=== PATIENT | male | born 1980 | race African-American/Black ===

== ENCOUNTER 2020-10-24 17:24 | Inpatient (IN) | payer OTHER ==
[2020-10-24] MEDS ORDERED: morphine CARPU-JECT 2 MG/1 ML DISP.SYRIN IVPUSH ONE (17:52)
[2020-10-24] MEDS ORDERED: morphine SULFATE 4 MG/ML VIAL ONE (18:08)
[2020-10-24 19:09] LABS: EOS % 5.5 % (0-4.5); HEMATOCRIT 33.1 % (35.4-49); HEMOGLOBIN 9.9 GM/dL (11.7-16.9); LYMPH % 38.4 % (8-40); MCH 20.4 pg (25.7-33.7); MEAN CELL VOLUME 68.1 fl (80-96); MEAN PLT VOLUME 10.5 fl (7.5-11.1); NEUT % 46.1 % (42.8-82.8); PLATELET COUNT 204 K/MM3 (134-434); RBC 4.87 M/mm3 (4.00-5.60); RDW 18.9 % (11.9-15.9); WHITE BLOOD COUNT 8.1 K/mm3 (4.0-10.0)
[2020-10-24 19:26] LABS: POTASSIUM 3.6 mmol/L (3.5-5.1)
[2020-10-24] MEDS ORDERED: PIPERACILLIN/TAZOB 4.5 GM 4.5 GM in DEXTROSE 5%-WATER 100 ML IVPB ONE (19:26)
[2020-10-24] MEDS ORDERED: VANCOMYCIN HCL 1,500 MG in DEXTROSE 5%-WATER - 500 ML IVPB ONE (19:26)
[2020-10-24 19:28] LABS: CALCIUM 8.2 mg/dL (8.5-10.1)
[2020-10-24 19:29] LABS: BLOOD UREA NITROGEN 15.5 mg/dL (7-18)
[2020-10-24 19:32] LABS: CREATININE 0.7 mg/dL (0.55-1.3)
[2020-10-24 19:33] LABS: BILIRUBIN,TOTAL 0.2 mg/dL (0.2-1); TOT PROT 7.7 g/dl (6.4-8.2)
[2020-10-24] MEDS ORDERED: PIPERACILLIN/TAZOB 4.5 GM 4.5 GM/100 ML BAG IVPB ONE (19:35)
[2020-10-24 21:09] LABS: ANISOCYTOSIS 3+; MACROCYTOSIS 1+; OVALOCYTE 1+; PLATELET ESTIMATE NORMAL; TARGET CELLS 1+
[2020-10-24 21:17] LABS: INR 1.21 (0.83-1.09); PROTHROMBIN TIME (PATIENT) 14.8 SEC (9.7-13.0)
[2020-10-24 21:20] LABS: ACTIVATED PTT 38.3 SECONDS (25.2-36.5)
[2020-10-24] MEDS ORDERED: oxyCODONE HCL 5 MG TABLET PO PRN (21:55)
[2020-10-24] MEDS ORDERED: DOCUSATE SODIUM 100 MG CAPSULE (FP) PO ONE (22:26)
[2020-10-24] MEDS: DOCUSATE SODIUM 100 MG CAPSULE (FP) PO SCH (22:36)
[2020-10-24] MEDS: INSULIN SLIDING SCALE (NOVOLOG) 1 VIAL SQ SCH (22:36)
[2020-10-25] MEDS ORDERED: ACETAMINOPHEN 500 MG TABLET (FP) PO PRN (01:12)
[2020-10-25] MEDS: CITRIC ACID/SODIUM CITRATE 30 ML UNIT-DOSE CUP PO SCH ×2 (02:27→14:14)
[2020-10-25] MEDS ORDERED: PIPERACILLIN/TAZOB 4.5 GM 4.5 GM/100 ML BAG IVPB ONE (03:33)
[2020-10-25] MEDS ORDERED: PIPERACILLIN/TAZOB 4.5 GM 4.5 GM in DEXTROSE 5%-WATER 100 ML IVPB ONE (04:00)
[2020-10-25] MEDS: AMANTADINE HCL 100MG/10 ML UNIT DOSE CUPS PO SCH ×2 (06:28→15:20)
[2020-10-25] MEDS: INSULIN SLIDING SCALE (NOVOLOG) 1 VIAL SQ SCH ×4 (06:28→21:43)
[2020-10-25 06:41] LABS: POTASSIUM 4.3 mmol/L (3.5-5.1)
[2020-10-25 06:43] LABS: HEMATOCRIT 35.5 % (35.4-49); HEMOGLOBIN 10.9 GM/dL (11.7-16.9); MCH 20.4 pg (25.7-33.7); MCHC 30.6 g/dl (32.0-35.9); MEAN CELL VOLUME 66.8 fl (80-96); MEAN PLT VOLUME 9.9 fl (7.5-11.1); PLATELET COUNT 200 K/MM3 (134-434); RBC 5.31 M/mm3 (4.00-5.60); RDW 19.2 % (11.9-15.9); WHITE BLOOD COUNT 9.1 K/mm3 (4.0-10.0)
[2020-10-25 06:45] LABS: ALBUMIN 3.4 g/dl (3.4-5.0); BLOOD UREA NITROGEN 11.1 mg/dL (7-18); MAGNESIUM 1.9 mg/dL (1.8-2.4)
[2020-10-25 06:48] LABS: CREATININE 0.8 mg/dL (0.55-1.3); PHOSPHOROUS 3.1 mg/dL (2.5-4.9)
[2020-10-25 06:49] LABS: BILIRUBIN,TOTAL 0.6 mg/dL (0.2-1); TOT PROT 8.2 g/dl (6.4-8.2)
[2020-10-25] MEDS ORDERED: LACOSAMIDE 200 MG PO SCH (09:00)
[2020-10-25] MEDS ORDERED: VANCOMYCIN HCL 1,500 MG in DEXTROSE 5%-WATER - 500 ML IVPB ONE (09:00)
[2020-10-25] MEDS ORDERED: ASCORBIC ACID 500 MG TABLET (FP) ONE (09:22)
[2020-10-25] MEDS ORDERED: METOPROLOL TARTRATE 25 MG TABLET (FP) ONE (09:23)
[2020-10-25] MEDS ORDERED: LACOSAMIDE 50 MG TABLET PO ONE (09:23)
[2020-10-25] MEDS ORDERED: ASPIRIN 81 MG CHEWABLE TABLETS ONE (09:23)
[2020-10-25] MEDS ORDERED: amLODIPine BESYLATE 5 MG TABLET (FP) ONE (09:24)
[2020-10-25] MEDS ORDERED: FUROSEMIDE 40 MG TABLET (FP) ONE (09:24)
[2020-10-25 09:25] LABS: EPI CELLS >36 /uL (0-25.1); HYALINE CASTS 0 /uL (0-3.1); PH,URINE 7.5 (5.0-8.0); URINE APPEARANCE CLEAR; URINE BACTERIA 76 /uL (0-1359); URINE BILIRUBIN NEGATIVE (NEGATIVE); URINE COLOR YELLOW; URINE GLUCOSE (UA) NEGATIVE (NEGATIVE); URINE KETONE NEGATIVE (NEGATIVE); URINE LEUK ESTERASE 3+ (NEGATIVE); URINE NITRITE NEGATIVE (NEGATIVE); URINE PROTEIN NEGATIVE (NEGATIVE); URINE RBC 7 /uL (0-23.9); URINE UROBILINOGEN 0.2 mg/dL (0.2-1.0); URINE WBC 177 /uL (0-25.8)
[2020-10-25] MEDS ORDERED: DOCUSATE SODIUM 100 MG CAPSULE (FP) PO ONE (09:25)
[2020-10-25] MEDS ORDERED: ENOXAPARIN NA (PORCINE) 40 MG/0.4 ML DISP.SYRIN SQ SCH ×2 (10:00)
[2020-10-25] MEDS ORDERED: CALCIUM POLYCARBOPHIL 625 MG PO SCH (10:00)
[2020-10-25] MEDS ORDERED: PATIENT'S OWN MEDICATION (NON-FORMULARY) (Bismuth Tribromoph/Petrolatum [Xeroform Petrolat TP SCH (10:00)
[2020-10-25] MEDS ORDERED: [UNRECOGNIZED DRUG - SUPPLY] TP SCH (10:00)
[2020-10-25] MEDS ORDERED: ASCORBIC ACID 500 MG/5 ML PO SCH (10:00)
[2020-10-25] MEDS ORDERED: PT OWN MED DRAWER 7, Y5N ONE ×4 (11:53→22:33)
[2020-10-25] MEDS: amLODIPine BESYLATE 5 MG TABLET (FP) PO SCH (14:12)
[2020-10-25] MEDS: ASPIRIN 81 MG CHEWABLE TABLETS PO SCH (14:12)
[2020-10-25] MEDS: DOCUSATE SODIUM 100 MG CAPSULE (FP) PO SCH ×2 (14:12→21:28)
[2020-10-25] MEDS: LACOSAMIDE 50 MG TABLET PO SCH ×2 (14:13→20:21)
[2020-10-25] MEDS: FUROSEMIDE 20 MG TABLET (FP) PO SCH (14:13)
[2020-10-25] MEDS: BACLOFEN 10 MG TABLET (FP) PO SCH ×2 (14:13→21:28)
[2020-10-25] MEDS: METOPROLOL TARTRATE 25 MG TABLET (FP) PO SCH ×2 (14:13→21:28)
[2020-10-25] MEDS: ASCORBIC ACID 500 MG/5 ML UNIT DOSE CUP PO SCH (14:14)
[2020-10-25] MEDS: AMANTADINE HCL 100 MG TABLET PO SCH ×2 (15:12→21:30)
[2020-10-25] MEDS: levETIRAcetam 500 MG/5 ML ORAL SOLUTION (UNIT-DOSE CUPS) PO SCH ×2 (15:12→21:27)
[2020-10-25 15:53] VITALS: BMI 26.4
[2020-10-25] MEDS: RIVAROXABAN 20 MG TABLET PO SCH (17:43)
[2020-10-25] MEDS: POLYETHYLENE GLYCOL 3350 119 GM BTL PO SCH (20:20)
[2020-10-25] MEDS: SENNOSIDES 8.6MG TABLET (FP) PO SCH (21:27)
[2020-10-25] MEDS: ATORVASTATIN CA 20 MG TABLET (FP) PO SCH (21:28)
[2020-10-26] MEDS ORDERED: PT OWN MED DRAWER 7, Y5N ONE ×6 (03:14→22:31)
[2020-10-26] MEDS: AMANTADINE HCL 100MG/10 ML UNIT DOSE CUPS PO SCH ×3 (05:53→21:30)
[2020-10-26] MEDS: INSULIN SLIDING SCALE (NOVOLOG) 1 VIAL SQ SCH ×4 (06:22→21:48)
[2020-10-26] MEDS: amLODIPine BESYLATE 5 MG TABLET (FP) PO SCH (10:26)
[2020-10-26] MEDS: BACLOFEN 10 MG TABLET (FP) PO SCH ×2 (10:26→21:29)
[2020-10-26] MEDS: ASPIRIN 81 MG CHEWABLE TABLETS PO SCH (10:27)
[2020-10-26] MEDS: METOPROLOL TARTRATE 25 MG TABLET (FP) PO SCH ×2 (10:27→21:29)
[2020-10-26] MEDS: FUROSEMIDE 20 MG TABLET (FP) PO SCH (10:27)
[2020-10-26] MEDS: ASCORBIC ACID 500 MG/5 ML UNIT DOSE CUP PO SCH (10:28)
[2020-10-26] MEDS: CITRIC ACID/SODIUM CITRATE 30 ML UNIT-DOSE CUP PO SCH ×2 (10:28→23:30)
[2020-10-26] MEDS: COLLAGENASE CLOSTRIDIUM HIST. 30 GRAMS TUBE TP SCH (10:28)
[2020-10-26] MEDS: DOCUSATE SODIUM 100 MG CAPSULE (FP) PO SCH ×2 (10:29→21:30)
[2020-10-26] MEDS: levETIRAcetam 500 MG/5 ML ORAL SOLUTION (UNIT-DOSE CUPS) PO SCH ×2 (10:34→21:30)
[2020-10-26] MEDS: LACOSAMIDE 50 MG TABLET PO SCH ×2 (11:27→23:30)
[2020-10-26] MEDS: RIVAROXABAN 20 MG TABLET PO SCH (17:24)
[2020-10-26] MEDS: ATORVASTATIN CA 20 MG TABLET (FP) PO SCH (21:29)
[2020-10-26] MEDS: SENNOSIDES 8.6MG TABLET (FP) PO SCH (21:31)
[2020-10-26] MEDS: POLYETHYLENE GLYCOL 3350 119 GM BTL PO SCH (21:31)
[2020-10-27] MEDS ORDERED: PT OWN MED DRAWER 7, Y5N ONE ×5 (02:50→21:55)
[2020-10-27] MEDS: AMANTADINE HCL 100MG/10 ML UNIT DOSE CUPS PO SCH ×3 (05:21→21:59)
[2020-10-27] MEDS: INSULIN SLIDING SCALE (NOVOLOG) 1 VIAL SQ SCH ×4 (06:20→22:09)
[2020-10-27] MEDS: amLODIPine BESYLATE 5 MG TABLET (FP) PO SCH (09:57)
[2020-10-27] MEDS: METOPROLOL TARTRATE 25 MG TABLET (FP) PO SCH ×2 (09:57→22:00)
[2020-10-27] MEDS: levETIRAcetam 500 MG/5 ML ORAL SOLUTION (UNIT-DOSE CUPS) PO SCH ×2 (09:58→21:59)
[2020-10-27] MEDS: LACOSAMIDE 50 MG TABLET PO SCH ×2 (09:58→22:00)
[2020-10-27] MEDS: DOCUSATE SODIUM 100 MG CAPSULE (FP) PO SCH ×2 (09:59→22:01)
[2020-10-27] MEDS: ASPIRIN 81 MG CHEWABLE TABLETS PO SCH (09:59)
[2020-10-27] MEDS: CITRIC ACID/SODIUM CITRATE 30 ML UNIT-DOSE CUP PO SCH ×2 (09:59→22:02)
[2020-10-27] MEDS: BACLOFEN 10 MG TABLET (FP) PO SCH ×2 (09:59→22:03)
[2020-10-27] MEDS: FUROSEMIDE 20 MG TABLET (FP) PO SCH (09:59)
[2020-10-27] MEDS: COLLAGENASE CLOSTRIDIUM HIST. 30 GRAMS TUBE TP SCH (10:00)
[2020-10-27] MEDS: ASCORBIC ACID 500 MG/5 ML UNIT DOSE CUP PO SCH (10:00)
[2020-10-27] MEDS: RIVAROXABAN 20 MG TABLET PO SCH (17:21)
[2020-10-27] MEDS: VANCOMYCIN 1 GRAM (PRE-DOCKED) 1,000 MG/250 ML BAG IVPB SCH (18:16)
[2020-10-27] MEDS: ATORVASTATIN CA 20 MG TABLET (FP) PO SCH (22:02)
[2020-10-27] MEDS: SENNOSIDES 8.6MG TABLET (FP) PO SCH (22:02)
[2020-10-27] MEDS: POLYETHYLENE GLYCOL 3350 119 GM BTL PO SCH (22:36)
[2020-10-28] MEDS ORDERED: PT OWN MED DRAWER 7, Y5N ONE ×2 (04:14→20:25)
[2020-10-28] MEDS: AMANTADINE HCL 100MG/10 ML UNIT DOSE CUPS PO SCH ×3 (07:00→21:37)
[2020-10-28] MEDS: INSULIN SLIDING SCALE (NOVOLOG) 1 VIAL SQ SCH ×4 (07:07→21:44)
[2020-10-28] MEDS: VANCOMYCIN 1 GRAM (PRE-DOCKED) 1,000 MG/250 ML BAG IVPB SCH ×2 (08:56→17:43)
[2020-10-28] MEDS: LACOSAMIDE 50 MG TABLET PO SCH ×2 (10:31→21:36)
[2020-10-28] MEDS: ASPIRIN 81 MG CHEWABLE TABLETS PO SCH (10:31)
[2020-10-28] MEDS: METOPROLOL TARTRATE 25 MG TABLET (FP) PO SCH ×2 (10:32→21:37)
[2020-10-28] MEDS: amLODIPine BESYLATE 5 MG TABLET (FP) PO SCH (10:32)
[2020-10-28] MEDS: FUROSEMIDE 20 MG TABLET (FP) PO SCH (10:32)
[2020-10-28] MEDS: DOCUSATE SODIUM 100 MG CAPSULE (FP) PO SCH ×2 (10:33→21:37)
[2020-10-28] MEDS: levETIRAcetam 500 MG/5 ML ORAL SOLUTION (UNIT-DOSE CUPS) PO SCH ×2 (10:34→22:41)
[2020-10-28] MEDS: COLLAGENASE CLOSTRIDIUM HIST. 30 GRAMS TUBE TP SCH (10:34)
[2020-10-28] MEDS: BACLOFEN 10 MG TABLET (FP) PO SCH ×2 (10:34→21:37)
[2020-10-28] MEDS: ASCORBIC ACID 500 MG/5 ML UNIT DOSE CUP PO SCH (15:24)
[2020-10-28] MEDS: CITRIC ACID/SODIUM CITRATE 30 ML UNIT-DOSE CUP PO SCH ×2 (15:24→21:36)
[2020-10-28] MEDS: RIVAROXABAN 20 MG TABLET PO SCH (17:44)
[2020-10-28] MEDS ORDERED: INSULIN (NOVOLOG) ASPART 100 UNITS/ML 10ML VIAL ONE (20:35)
[2020-10-28] MEDS: SENNOSIDES 8.6MG TABLET (FP) PO SCH (21:36)
[2020-10-28] MEDS: POLYETHYLENE GLYCOL 3350 119 GM BTL PO SCH (21:36)
[2020-10-28] MEDS: ATORVASTATIN CA 20 MG TABLET (FP) PO SCH (21:37)
[2020-10-29] MEDS ORDERED: PT OWN MED DRAWER 7, Y5N ONE ×4 (04:22→21:07)
[2020-10-29] MEDS: AMANTADINE HCL 100MG/10 ML UNIT DOSE CUPS PO SCH ×3 (05:41→22:14)
[2020-10-29] MEDS: VANCOMYCIN 1 GRAM (PRE-DOCKED) 1,000 MG/250 ML BAG IVPB SCH (06:35)
[2020-10-29] MEDS: INSULIN SLIDING SCALE (NOVOLOG) 1 VIAL SQ SCH ×4 (06:35→22:13)
[2020-10-29 09:25] LABS: HEMATOCRIT 32.4 % (35.4-49); HEMOGLOBIN 9.9 GM/dL (11.7-16.9); MCH 20.5 pg (25.7-33.7); MCHC 30.6 g/dl (32.0-35.9); MEAN CELL VOLUME 66.7 fl (80-96); MEAN PLT VOLUME 9.9 fl (7.5-11.1); PLATELET COUNT 227 K/MM3 (134-434); RBC 4.86 M/mm3 (4.00-5.60); RDW 20.1 % (11.9-15.9); WHITE BLOOD COUNT 8.7 K/mm3 (4.0-10.0)
[2020-10-29 10:00] LABS: BLOOD UREA NITROGEN 11.8 mg/dL (7-18); CALCIUM 8.2 mg/dL (8.5-10.1); CREATININE 0.7 mg/dL (0.55-1.3); MAGNESIUM 2.2 mg/dL (1.8-2.4); PHOSPHOROUS 2.6 mg/dL (2.5-4.9); POTASSIUM 3.8 mmol/L (3.5-5.1)
[2020-10-29] MEDS: ASPIRIN 81 MG CHEWABLE TABLETS PO SCH (10:23)
[2020-10-29] MEDS: amLODIPine BESYLATE 5 MG TABLET (FP) PO SCH (10:23)
[2020-10-29] MEDS: LACTOBACILLUS ACIDOPHILUS 1 TABLET PO SCH (10:24)
[2020-10-29] MEDS: FUROSEMIDE 20 MG TABLET (FP) PO SCH (10:24)
[2020-10-29] MEDS: METOPROLOL TARTRATE 25 MG TABLET (FP) PO SCH ×2 (10:24→22:11)
[2020-10-29] MEDS: levETIRAcetam 500 MG/5 ML ORAL SOLUTION (UNIT-DOSE CUPS) PO SCH ×2 (10:24→22:06)
[2020-10-29] MEDS: COLLAGENASE CLOSTRIDIUM HIST. 30 GRAMS TUBE TP SCH (10:25)
[2020-10-29] MEDS: BACLOFEN 10 MG TABLET (FP) PO SCH ×2 (10:25→22:06)
[2020-10-29] MEDS: FERROUS SO4 325 MG TABLET (FP) PO SCH (10:25)
[2020-10-29] MEDS: ASCORBIC ACID 500 MG/5 ML UNIT DOSE CUP PO SCH (10:25)
[2020-10-29] MEDS: CITRIC ACID/SODIUM CITRATE 30 ML UNIT-DOSE CUP PO SCH ×2 (10:26→22:06)
[2020-10-29] MEDS: DOCUSATE SODIUM 100 MG CAPSULE (FP) PO SCH ×2 (10:26→22:06)
[2020-10-29] MEDS: LACOSAMIDE 50 MG TABLET PO SCH ×2 (10:27→22:05)
[2020-10-29] MEDS ORDERED: VANCOMYCIN 1 GRAM (PRE-DOCKED) 1,000 MG/250 ML BAG IVPB SCH (11:30)
[2020-10-29] MEDS: RIVAROXABAN 20 MG TABLET PO SCH (18:14)
[2020-10-29] MEDS ORDERED: INSULIN (NOVOLOG) ASPART 100 UNITS/ML 10ML VIAL ONE (21:18)
[2020-10-29] MEDS: POLYETHYLENE GLYCOL 3350 119 GM BTL PO SCH (22:04)
[2020-10-29] MEDS: ATORVASTATIN CA 20 MG TABLET (FP) PO SCH (22:10)
[2020-10-29] MEDS: SENNOSIDES 8.6MG TABLET (FP) PO SCH (22:13)
[2020-10-30] MEDS ORDERED: PT OWN MED DRAWER 7, Y5N ONE ×6 (05:23→20:39)
[2020-10-30] MEDS: AMANTADINE HCL 100MG/10 ML UNIT DOSE CUPS PO SCH ×3 (05:46→21:31)
[2020-10-30] MEDS ORDERED: VANCOMYCIN 1 GRAM (PRE-DOCKED) 1,000 MG/250 ML BAG IVPB SCH (06:00)
[2020-10-30] MEDS: INSULIN SLIDING SCALE (NOVOLOG) 1 VIAL SQ SCH ×4 (06:12→21:31)
[2020-10-30 08:41] LABS: POTASSIUM 3.9 mmol/L (3.5-5.1)
[2020-10-30 08:43] LABS: CALCIUM 8.5 mg/dL (8.5-10.1)
[2020-10-30 08:44] LABS: BLOOD UREA NITROGEN 12.9 mg/dL (7-18); MAGNESIUM 2.1 mg/dL (1.8-2.4)
[2020-10-30 08:46] LABS: CREATININE 0.7 mg/dL (0.55-1.3); HEMOGLOBIN 9.4 GM/dL (11.7-16.9); MCH 20.3 pg (25.7-33.7); MCHC 30.4 g/dl (32.0-35.9); MEAN CELL VOLUME 66.8 fl (80-96); MEAN PLT VOLUME 9.6 fl (7.5-11.1); PHOSPHOROUS 2.9 mg/dL (2.5-4.9); PLATELET COUNT 202 K/MM3 (134-434); RBC 4.65 M/mm3 (4.00-5.60); WHITE BLOOD COUNT 7.7 K/mm3 (4.0-10.0)
[2020-10-30] MEDS: LACOSAMIDE 50 MG TABLET PO SCH ×2 (09:15→22:24)
[2020-10-30] MEDS: ASPIRIN 81 MG CHEWABLE TABLETS PO SCH (09:16)
[2020-10-30] MEDS: LACTOBACILLUS ACIDOPHILUS 1 TABLET PO SCH (09:16)
[2020-10-30] MEDS: CITRIC ACID/SODIUM CITRATE 30 ML UNIT-DOSE CUP PO SCH ×2 (09:17→21:32)
[2020-10-30] MEDS: FERROUS SO4 325 MG TABLET (FP) PO SCH (09:18)
[2020-10-30] MEDS: DOCUSATE SODIUM 100 MG CAPSULE (FP) PO SCH ×2 (09:18→21:32)
[2020-10-30] MEDS: BACLOFEN 10 MG TABLET (FP) PO SCH ×2 (09:19→21:33)
[2020-10-30] MEDS: FUROSEMIDE 20 MG TABLET (FP) PO SCH (09:19)
[2020-10-30] MEDS: amLODIPine BESYLATE 5 MG TABLET (FP) PO SCH (09:19)
[2020-10-30] MEDS: METOPROLOL TARTRATE 25 MG TABLET (FP) PO SCH ×2 (09:19→21:31)
[2020-10-30] MEDS: ASCORBIC ACID 500 MG/5 ML UNIT DOSE CUP PO SCH (09:20)
[2020-10-30] MEDS: levETIRAcetam 500 MG/5 ML ORAL SOLUTION (UNIT-DOSE CUPS) PO SCH ×2 (11:30→21:31)
[2020-10-30] MEDS: COLLAGENASE CLOSTRIDIUM HIST. 30 GRAMS TUBE TP SCH (13:45)
[2020-10-30] MEDS: RIVAROXABAN 20 MG TABLET PO SCH (17:33)
[2020-10-30] MEDS: POLYETHYLENE GLYCOL 3350 119 GM BTL PO SCH (21:25)
[2020-10-30] MEDS: SENNOSIDES 8.6MG TABLET (FP) PO SCH (21:30)
[2020-10-30] MEDS: ATORVASTATIN CA 20 MG TABLET (FP) PO SCH (21:33)
[2020-10-30] MEDS ORDERED: VANCOMYCIN 750 MG in DEXTROSE 5%-WATER - 150 ML IVPB SCH (22:00)
[2020-10-30] MEDS ORDERED: DOXYCYCLINE INJECTION 100 MG in DEXTROSE 5%-WATER 100 ML IVPB SCH (22:00)
[2020-10-31] MEDS ORDERED: PT OWN MED DRAWER 7, Y5N ONE ×5 (05:00→20:21)
[2020-10-31] MEDS: AMANTADINE HCL 100MG/10 ML UNIT DOSE CUPS PO SCH ×3 (05:13→21:13)
[2020-10-31] MEDS: INSULIN SLIDING SCALE (NOVOLOG) 1 VIAL SQ SCH ×4 (06:43→21:28)
[2020-10-31 08:44] LABS: HEMATOCRIT 32.2 % (35.4-49); HEMOGLOBIN 9.6 GM/dL (11.7-16.9); MCH 20.3 pg (25.7-33.7); MCHC 29.9 g/dl (32.0-35.9); MEAN CELL VOLUME 67.9 fl (80-96); MEAN PLT VOLUME 10.4 fl (7.5-11.1); RBC 4.74 M/mm3 (4.00-5.60); WHITE BLOOD COUNT 8.8 K/mm3 (4.0-10.0)
[2020-10-31 09:07] LABS: CALCIUM 8.5 mg/dL (8.5-10.1)
[2020-10-31 09:09] LABS: BLOOD UREA NITROGEN 14.7 mg/dL (7-18); MAGNESIUM 2.2 mg/dL (1.8-2.4)
[2020-10-31 09:11] LABS: CREATININE 0.7 mg/dL (0.55-1.3); PHOSPHOROUS 2.7 mg/dL (2.5-4.9)
[2020-10-31] MEDS: LACOSAMIDE 50 MG TABLET PO SCH ×2 (09:21→20:30)
[2020-10-31] MEDS: ASPIRIN 81 MG CHEWABLE TABLETS PO SCH (09:21)
[2020-10-31] MEDS: CITRIC ACID/SODIUM CITRATE 30 ML UNIT-DOSE CUP PO SCH ×2 (09:22→21:28)
[2020-10-31] MEDS: LACTOBACILLUS ACIDOPHILUS 1 TABLET PO SCH (09:22)
[2020-10-31] MEDS: FERROUS SO4 325 MG TABLET (FP) PO SCH (09:23)
[2020-10-31] MEDS: levETIRAcetam 500 MG/5 ML ORAL SOLUTION (UNIT-DOSE CUPS) PO SCH ×2 (09:23→21:14)
[2020-10-31] MEDS: DOCUSATE SODIUM 100 MG CAPSULE (FP) PO SCH ×2 (09:23→21:14)
[2020-10-31] MEDS: FUROSEMIDE 20 MG TABLET (FP) PO SCH (09:23)
[2020-10-31] MEDS: BACLOFEN 10 MG TABLET (FP) PO SCH ×2 (09:24→21:14)
[2020-10-31] MEDS: DOXYCYCLINE HYCLATE 100 MG CAPSULE PO SCH ×2 (09:24→17:36)
[2020-10-31] MEDS: METOPROLOL TARTRATE 25 MG TABLET (FP) PO SCH ×2 (09:24→21:13)
[2020-10-31] MEDS: amLODIPine BESYLATE 5 MG TABLET (FP) PO SCH (09:24)
[2020-10-31] MEDS: ASCORBIC ACID 500 MG/5 ML UNIT DOSE CUP PO SCH (09:25)
[2020-10-31 11:40] LABS: PLATELET COUNT 217 K/MM3 (134-434)
[2020-10-31] MEDS: COLLAGENASE CLOSTRIDIUM HIST. 30 GRAMS TUBE TP SCH (15:18)
[2020-10-31] MEDS: RIVAROXABAN 20 MG TABLET PO SCH (17:37)
[2020-10-31] MEDS: POLYETHYLENE GLYCOL 3350 119 GM BTL PO SCH (20:29)
[2020-10-31] MEDS: SENNOSIDES 8.6MG TABLET (FP) PO SCH (21:13)
[2020-10-31] MEDS: ATORVASTATIN CA 20 MG TABLET (FP) PO SCH (21:13)
[2020-10-31] MEDS ORDERED: INSULIN (NOVOLOG) ASPART 100 UNITS/ML 10ML VIAL ONE (21:19)
[2020-11-01] MEDS ORDERED: PT OWN MED DRAWER 7, Y5N ONE ×4 (03:29→09:31)
[2020-11-01] MEDS: AMANTADINE HCL 100MG/10 ML UNIT DOSE CUPS PO SCH ×3 (05:05→22:25)
[2020-11-01] MEDS: INSULIN SLIDING SCALE (NOVOLOG) 1 VIAL SQ SCH ×4 (06:30→22:26)
[2020-11-01 08:56] LABS: HEMOGLOBIN 9.7 GM/dL (11.7-16.9); MCH 20.3 pg (25.7-33.7); MCHC 30.3 g/dl (32.0-35.9); MEAN PLT VOLUME 10.1 fl (7.5-11.1); PLATELET COUNT 228 K/MM3 (134-434); RBC 4.78 M/mm3 (4.00-5.60); RDW 20.4 % (11.9-15.9)
[2020-11-01] MEDS: DOXYCYCLINE HYCLATE 100 MG CAPSULE PO SCH ×2 (09:11→17:06)
[2020-11-01] MEDS: ASPIRIN 81 MG CHEWABLE TABLETS PO SCH (09:11)
[2020-11-01] MEDS: LACTOBACILLUS ACIDOPHILUS 1 TABLET PO SCH (09:12)
[2020-11-01] MEDS: LACOSAMIDE 50 MG TABLET PO SCH ×2 (09:12→22:28)
[2020-11-01] MEDS: FERROUS SO4 325 MG TABLET (FP) PO SCH (09:12)
[2020-11-01] MEDS: levETIRAcetam 500 MG/5 ML ORAL SOLUTION (UNIT-DOSE CUPS) PO SCH ×2 (09:12→22:26)
[2020-11-01] MEDS: FUROSEMIDE 20 MG TABLET (FP) PO SCH (09:12)
[2020-11-01] MEDS: METOPROLOL TARTRATE 25 MG TABLET (FP) PO SCH ×2 (09:12→22:26)
[2020-11-01] MEDS: amLODIPine BESYLATE 5 MG TABLET (FP) PO SCH (09:13)
[2020-11-01] MEDS: BACLOFEN 10 MG TABLET (FP) PO SCH ×2 (09:13→22:26)
[2020-11-01] MEDS: ASCORBIC ACID 500 MG/5 ML UNIT DOSE CUP PO SCH (09:13)
[2020-11-01] MEDS: DOCUSATE SODIUM 100 MG CAPSULE (FP) PO SCH ×2 (09:13→22:27)
[2020-11-01] MEDS: CITRIC ACID/SODIUM CITRATE 30 ML UNIT-DOSE CUP PO SCH ×2 (09:13→22:27)
[2020-11-01 09:17] LABS: CALCIUM 8.8 mg/dL (8.5-10.1); POTASSIUM 4.4 mmol/L (3.5-5.1)
[2020-11-01 09:18] LABS: MAGNESIUM 2.3 mg/dL (1.8-2.4)
[2020-11-01 09:19] LABS: BLOOD UREA NITROGEN 17.5 mg/dL (7-18)
[2020-11-01 09:21] LABS: CREATININE 0.8 mg/dL (0.55-1.3); PHOSPHOROUS 2.6 mg/dL (2.5-4.9)
[2020-11-01] MEDS: COLLAGENASE CLOSTRIDIUM HIST. 30 GRAMS TUBE TP SCH (13:19)
[2020-11-01] MEDS: RIVAROXABAN 20 MG TABLET PO SCH (17:07)
[2020-11-01] MEDS: POLYETHYLENE GLYCOL 3350 119 GM BTL PO SCH (22:23)
[2020-11-01] MEDS: ATORVASTATIN CA 20 MG TABLET (FP) PO SCH (22:26)
[2020-11-01] MEDS: SENNOSIDES 8.6MG TABLET (FP) PO SCH (22:26)
[2020-11-01] MEDS: MUPIROCIN CA 2% TOPICAL CREAM 15 GM TUBE TP SCH (23:05)
[2020-11-02] MEDS: AMANTADINE HCL 100MG/10 ML UNIT DOSE CUPS PO SCH ×3 (06:08→21:09)
[2020-11-02] MEDS: INSULIN SLIDING SCALE (NOVOLOG) 1 VIAL SQ SCH ×4 (06:08→21:16)
[2020-11-02 08:58] LABS: HEMATOCRIT 31.4 % (35.4-49); HEMOGLOBIN 9.4 GM/dL (11.7-16.9); MCH 20.2 pg (25.7-33.7); MEAN CELL VOLUME 67.3 fl (80-96); MEAN PLT VOLUME 9.6 fl (7.5-11.1); PLATELET COUNT 214 K/MM3 (134-434); RBC 4.66 M/mm3 (4.00-5.60); RDW 20.6 % (11.9-15.9); WHITE BLOOD COUNT 7.3 K/mm3 (4.0-10.0)
[2020-11-02 09:14] LABS: POTASSIUM 3.7 mmol/L (3.5-5.1)
[2020-11-02 09:18] LABS: BLOOD UREA NITROGEN 17.8 mg/dL (7-18); CALCIUM 8.7 mg/dL (8.5-10.1); MAGNESIUM 2.2 mg/dL (1.8-2.4)
[2020-11-02 09:21] LABS: CREATININE 0.7 mg/dL (0.55-1.3)
[2020-11-02 09:22] LABS: PHOSPHOROUS 3.1 mg/dL (2.5-4.9)
[2020-11-02] MEDS ORDERED: PT OWN MED DRAWER 7, Y5N ONE ×4 (09:57→20:33)
[2020-11-02] MEDS: FUROSEMIDE 20 MG TABLET (FP) PO SCH (10:57)
[2020-11-02] MEDS: amLODIPine BESYLATE 5 MG TABLET (FP) PO SCH (10:58)
[2020-11-02] MEDS: LACTOBACILLUS ACIDOPHILUS 1 TABLET PO SCH (10:58)
[2020-11-02] MEDS: FERROUS SO4 325 MG TABLET (FP) PO SCH (10:58)
[2020-11-02] MEDS: ASCORBIC ACID 500 MG/5 ML UNIT DOSE CUP PO SCH (10:59)
[2020-11-02] MEDS: METOPROLOL TARTRATE 25 MG TABLET (FP) PO SCH ×2 (10:59→21:08)
[2020-11-02] MEDS: ASPIRIN 81 MG CHEWABLE TABLETS PO SCH (10:59)
[2020-11-02] MEDS: BACLOFEN 10 MG TABLET (FP) PO SCH ×2 (10:59→21:08)
[2020-11-02] MEDS: levETIRAcetam 500 MG/5 ML ORAL SOLUTION (UNIT-DOSE CUPS) PO SCH ×2 (11:02→21:08)
[2020-11-02] MEDS: DOCUSATE SODIUM 100 MG CAPSULE (FP) PO SCH ×2 (11:02→21:09)
[2020-11-02] MEDS: CITRIC ACID/SODIUM CITRATE 30 ML UNIT-DOSE CUP PO SCH ×2 (11:03→21:09)
[2020-11-02] MEDS: MUPIROCIN CA 2% TOPICAL CREAM 15 GM TUBE TP SCH ×2 (11:03→21:09)
[2020-11-02] MEDS: LACOSAMIDE 50 MG TABLET PO SCH ×2 (11:37→21:08)
[2020-11-02] MEDS: VANCOMYCIN/WATER BAGS 1,250 MG/250 ML BAG IVPB SCH (11:37)
[2020-11-02] MEDS: RIVAROXABAN 20 MG TABLET PO SCH (17:31)
[2020-11-02] MEDS: ATORVASTATIN CA 20 MG TABLET (FP) PO SCH (21:08)
[2020-11-02] MEDS: SENNOSIDES 8.6MG TABLET (FP) PO SCH (21:08)
[2020-11-02] MEDS: POLYETHYLENE GLYCOL 3350 119 GM BTL PO SCH (21:08)
[2020-11-03] MEDS ORDERED: PT OWN MED DRAWER 7, Y5N ONE ×4 (04:23→20:56)
[2020-11-03] MEDS: INSULIN SLIDING SCALE (NOVOLOG) 1 VIAL SQ SCH ×4 (06:05→21:18)
[2020-11-03] MEDS: AMANTADINE HCL 100MG/10 ML UNIT DOSE CUPS PO SCH ×3 (06:05→21:22)
[2020-11-03 08:41] LABS: HEMATOCRIT 31.5 % (35.4-49); HEMOGLOBIN 9.5 GM/dL (11.7-16.9); MCH 20.4 pg (25.7-33.7); MCHC 30.2 g/dl (32.0-35.9); MEAN CELL VOLUME 67.4 fl (80-96); MEAN PLT VOLUME 9.6 fl (7.5-11.1); PLATELET COUNT 224 K/MM3 (134-434); RBC 4.67 M/mm3 (4.00-5.60); WHITE BLOOD COUNT 8.8 K/mm3 (4.0-10.0)
[2020-11-03 09:01] LABS: POTASSIUM 3.9 mmol/L (3.5-5.1)
[2020-11-03 09:03] LABS: CALCIUM 8.7 mg/dL (8.5-10.1)
[2020-11-03 09:04] LABS: BLOOD UREA NITROGEN 16.5 mg/dL (7-18); MAGNESIUM 2.2 mg/dL (1.8-2.4)
[2020-11-03 09:09] LABS: CREATININE 0.7 mg/dL (0.55-1.3); PHOSPHOROUS 3.1 mg/dL (2.5-4.9)
[2020-11-03] MEDS: levETIRAcetam 500 MG/5 ML ORAL SOLUTION (UNIT-DOSE CUPS) PO SCH ×2 (10:21→21:23)
[2020-11-03] MEDS: VANCOMYCIN/WATER BAGS 1,250 MG/250 ML BAG IVPB SCH (10:22)
[2020-11-03] MEDS: LACOSAMIDE 50 MG TABLET PO SCH ×2 (10:22→21:10)
[2020-11-03] MEDS: LACTOBACILLUS ACIDOPHILUS 1 TABLET PO SCH (10:22)
[2020-11-03] MEDS: ASCORBIC ACID 500 MG/5 ML UNIT DOSE CUP PO SCH (10:22)
[2020-11-03] MEDS: MUPIROCIN CA 2% TOPICAL CREAM 15 GM TUBE TP SCH ×2 (10:23→21:22)
[2020-11-03] MEDS: METOPROLOL TARTRATE 25 MG TABLET (FP) PO SCH ×2 (10:23→21:22)
[2020-11-03] MEDS: amLODIPine BESYLATE 5 MG TABLET (FP) PO SCH (10:23)
[2020-11-03] MEDS: CITRIC ACID/SODIUM CITRATE 30 ML UNIT-DOSE CUP PO SCH ×2 (10:23→21:23)
[2020-11-03] MEDS: ASPIRIN 81 MG CHEWABLE TABLETS PO SCH (10:23)
[2020-11-03] MEDS: FUROSEMIDE 20 MG TABLET (FP) PO SCH (10:23)
[2020-11-03] MEDS: BACLOFEN 10 MG TABLET (FP) PO SCH ×2 (10:23→21:21)
[2020-11-03] MEDS: DOCUSATE SODIUM 100 MG CAPSULE (FP) PO SCH ×2 (10:23→21:23)
[2020-11-03] MEDS: FERROUS SO4 325 MG TABLET (FP) PO SCH (10:23)
[2020-11-03] MEDS: POLYETHYLENE GLYCOL 3350 119 GM BTL PO SCH (21:00)
[2020-11-03] MEDS: ATORVASTATIN CA 20 MG TABLET (FP) PO SCH (21:21)
[2020-11-03] MEDS: SENNOSIDES 8.6MG TABLET (FP) PO SCH (21:28)
[2020-11-04] MEDS ORDERED: PT OWN MED DRAWER 7, Y5N ONE ×2 (05:56→09:31)
[2020-11-04] MEDS: AMANTADINE HCL 100MG/10 ML UNIT DOSE CUPS PO SCH ×3 (06:43→21:35)
[2020-11-04] MEDS: INSULIN SLIDING SCALE (NOVOLOG) 1 VIAL SQ SCH ×4 (07:25→21:34)
[2020-11-04 08:31] LABS: HEMATOCRIT 32.6 % (35.4-49); HEMOGLOBIN 9.7 GM/dL (11.7-16.9); MCH 20.2 pg (25.7-33.7); MCHC 29.9 g/dl (32.0-35.9); MEAN CELL VOLUME 67.7 fl (80-96); MEAN PLT VOLUME 10.1 fl (7.5-11.1); PLATELET COUNT 234 K/MM3 (134-434); RBC 4.81 M/mm3 (4.00-5.60); WHITE BLOOD COUNT 8.2 K/mm3 (4.0-10.0)
[2020-11-04 08:49] LABS: POTASSIUM 3.9 mmol/L (3.5-5.1)
[2020-11-04 09:04] LABS: BLOOD UREA NITROGEN 16.2 mg/dL (7-18); CALCIUM 8.6 mg/dL (8.5-10.1); MAGNESIUM 2.2 mg/dL (1.8-2.4)
[2020-11-04 09:06] LABS: CREATININE 0.7 mg/dL (0.55-1.3)
[2020-11-04 09:07] LABS: PHOSPHOROUS 2.9 mg/dL (2.5-4.9)
[2020-11-04] MEDS: METOPROLOL TARTRATE 25 MG TABLET (FP) PO SCH ×2 (09:43→21:29)
[2020-11-04] MEDS: LACOSAMIDE 50 MG TABLET PO SCH ×2 (09:43→21:28)
[2020-11-04] MEDS: amLODIPine BESYLATE 5 MG TABLET (FP) PO SCH (09:44)
[2020-11-04] MEDS: levETIRAcetam 500 MG/5 ML ORAL SOLUTION (UNIT-DOSE CUPS) PO SCH ×2 (09:45→21:27)
[2020-11-04] MEDS: VANCOMYCIN/WATER BAGS 1,250 MG/250 ML BAG IVPB SCH (10:08)
[2020-11-04] MEDS: LACTOBACILLUS ACIDOPHILUS 1 TABLET PO SCH (11:22)
[2020-11-04] MEDS: ASPIRIN 81 MG CHEWABLE TABLETS PO SCH (11:22)
[2020-11-04] MEDS: BACLOFEN 10 MG TABLET (FP) PO SCH ×2 (11:23→21:34)
[2020-11-04] MEDS: FUROSEMIDE 20 MG TABLET (FP) PO SCH (11:23)
[2020-11-04] MEDS: DOCUSATE SODIUM 100 MG CAPSULE (FP) PO SCH ×2 (11:23→21:33)
[2020-11-04] MEDS: ASCORBIC ACID 500 MG/5 ML UNIT DOSE CUP PO SCH (11:23)
[2020-11-04] MEDS: FERROUS SO4 325 MG TABLET (FP) PO SCH (11:23)
[2020-11-04] MEDS: CITRIC ACID/SODIUM CITRATE 30 ML UNIT-DOSE CUP PO SCH ×2 (11:23→21:33)
[2020-11-04] MEDS ORDERED: MIDAZOLAM HCL 2 MG/2 ML SINGLE DOSE VIAL ONE ×3 (13:40→14:41)
[2020-11-04] MEDS ORDERED: oxyCODONE HCL 5 MG TABLET PO PRN ×2 (14:15→16:27)
[2020-11-04] MEDS ORDERED: ONDANSETRON 4 MG/2 ML VIAL IVPUSH PRN ×2 (14:15→16:27)
[2020-11-04] MEDS ORDERED: ceFAZolin SODIUM 1 GM VIAL ONE (14:19)
[2020-11-04] MEDS ORDERED: ceFAZolin 2 GRAM PREMIX BAG IVPB ONE (14:20)
[2020-11-04] MEDS ORDERED: LIDOCAINE 1%/EPI 1:100000 (50 ML MULTI DOSE VIAL) ONE (14:35)
[2020-11-04] MEDS ORDERED: LIDOCAINE HCL 1%, 10 MG/ML (50 mL VIAL) NR ONE (14:58)
[2020-11-04] MEDS ORDERED: ACETAMINOPHEN 500 MG TABLET (FP) PO PRN (16:27)
[2020-11-04] MEDS: MUPIROCIN CA 2% TOPICAL CREAM 15 GM TUBE TP SCH ×2 (18:37→22:50)
[2020-11-04] MEDS: SENNOSIDES 8.6MG TABLET (FP) PO SCH (21:28)
[2020-11-04] MEDS: ATORVASTATIN CA 20 MG TABLET (FP) PO SCH (21:30)
[2020-11-04] MEDS: POLYETHYLENE GLYCOL 3350 119 GM BTL PO SCH (21:30)
[2020-11-05] MEDS: AMANTADINE HCL 100MG/10 ML UNIT DOSE CUPS PO SCH ×2 (05:52→13:09)
[2020-11-05] MEDS: INSULIN SLIDING SCALE (NOVOLOG) 1 VIAL SQ SCH ×4 (06:01→22:34)
[2020-11-05 08:15] LABS: BASO % 0.6 % (0-2.0); EOS % 1.2 % (0-4.5); HEMATOCRIT 31.6 % (35.4-49); HEMOGLOBIN 9.6 GM/dL (11.7-16.9); LYMPH % 22.2 % (8-40); MCH 20.5 pg (25.7-33.7); MCHC 30.4 g/dl (32.0-35.9); MEAN CELL VOLUME 67.3 fl (80-96); MEAN PLT VOLUME 9.4 fl (7.5-11.1); MONO % 7.5 % (3.8-10.2); NEUT % 68.5 % (42.8-82.8); PLATELET COUNT 222 K/MM3 (134-434); RDW 20.5 % (11.9-15.9); WHITE BLOOD COUNT 9.7 K/mm3 (4.0-10.0)
[2020-11-05 08:36] LABS: POTASSIUM 3.8 mmol/L (3.5-5.1)
[2020-11-05 08:38] LABS: BLOOD UREA NITROGEN 15.2 mg/dL (7-18); CALCIUM 8.4 mg/dL (8.5-10.1); MAGNESIUM 2.2 mg/dL (1.8-2.4)
[2020-11-05 08:40] LABS: PHOSPHOROUS 3.2 mg/dL (2.5-4.9)
[2020-11-05 08:41] LABS: CREATININE 0.6 mg/dL (0.55-1.3)
[2020-11-05 08:42] LABS: BILIRUBIN,TOTAL 0.6 mg/dL (0.2-1); TOT PROT 7.1 g/dl (6.4-8.2)
[2020-11-05] MEDS ORDERED: PT OWN MED DRAWER 7, Y5N ONE ×2 (09:48→13:08)
[2020-11-05] MEDS: LACOSAMIDE 50 MG TABLET PO SCH ×3 (09:51→22:48)
[2020-11-05] MEDS: FUROSEMIDE 20 MG TABLET (FP) PO SCH (09:52)
[2020-11-05] MEDS: ASPIRIN 81 MG CHEWABLE TABLETS PO SCH (09:52)
[2020-11-05] MEDS: amLODIPine BESYLATE 5 MG TABLET (FP) PO SCH (09:52)
[2020-11-05] MEDS: DOCUSATE SODIUM 100 MG CAPSULE (FP) PO SCH ×2 (09:52→22:51)
[2020-11-05] MEDS: FERROUS SO4 325 MG TABLET (FP) PO SCH (09:52)
[2020-11-05] MEDS: METOPROLOL TARTRATE 25 MG TABLET (FP) PO SCH ×2 (09:52→22:51)
[2020-11-05] MEDS: LACTOBACILLUS ACIDOPHILUS 1 TABLET PO SCH (09:52)
[2020-11-05] MEDS: levETIRAcetam 500 MG/5 ML ORAL SOLUTION (UNIT-DOSE CUPS) PO SCH ×2 (09:53→22:51)
[2020-11-05] MEDS: CITRIC ACID/SODIUM CITRATE 30 ML UNIT-DOSE CUP PO SCH (09:54)
[2020-11-05] MEDS: BACLOFEN 10 MG TABLET (FP) PO SCH ×2 (09:54→22:51)
[2020-11-05] MEDS: MUPIROCIN CA 2% TOPICAL CREAM 15 GM TUBE TP SCH ×2 (09:54→22:35)
[2020-11-05] MEDS: ASCORBIC ACID 500 MG/5 ML UNIT DOSE CUP PO SCH (09:55)
[2020-11-05] MEDS ORDERED: VANCOMYCIN/WATER BAGS 1,250 MG/250 ML BAG IVPB SCH (10:00)
[2020-11-05 10:33] LABS: ANISOCYTOSIS 1+; MACROCYTOSIS 1+; PLATELET ESTIMATE NORMAL; TARGET CELLS 1+
[2020-11-05] MEDS: RIVAROXABAN 20 MG TABLET PO SCH (17:22)
[2020-11-05] MEDS: POLYETHYLENE GLYCOL 3350 119 GM BTL PO SCH (22:48)
[2020-11-05] MEDS: ATORVASTATIN CA 20 MG TABLET (FP) PO SCH (22:51)
[2020-11-05] MEDS: SENNOSIDES 8.6MG TABLET (FP) PO SCH (22:51)
[2020-11-06] MEDS: CITRIC ACID/SODIUM CITRATE 30 ML UNIT-DOSE CUP PO SCH ×2 (00:05→11:02)
[2020-11-06] MEDS: AMANTADINE HCL 100MG/10 ML UNIT DOSE CUPS PO SCH ×3 (00:06→13:10)
[2020-11-06] MEDS ORDERED: PT OWN MED DRAWER 7, Y5N ONE ×2 (06:23→09:11)
[2020-11-06] MEDS: INSULIN SLIDING SCALE (NOVOLOG) 1 VIAL SQ SCH ×3 (06:29→17:01)
[2020-11-06] MEDS ORDERED: VANCOMYCIN HCL 1,500 MG in DEXTROSE 5%-WATER - 500 ML IVPB SCH (10:00)
[2020-11-06 10:17] LABS: EOS % 1.7 % (0-4.5); HEMATOCRIT 31.6 % (35.4-49); HEMOGLOBIN 9.7 GM/dL (11.7-16.9); LYMPH % 25.8 % (8-40); MCH 20.4 pg (25.7-33.7); MCHC 30.6 g/dl (32.0-35.9); MEAN CELL VOLUME 66.8 fl (80-96); MEAN PLT VOLUME 9.3 fl (7.5-11.1); MONO % 11.3 % (3.8-10.2); NEUT % 60.2 % (42.8-82.8); PLATELET COUNT 235 K/MM3 (134-434); RBC 4.73 M/mm3 (4.00-5.60); RDW 21.4 % (11.9-15.9); WHITE BLOOD COUNT 9.1 K/mm3 (4.0-10.0)
[2020-11-06 10:34] LABS: POTASSIUM 3.8 mmol/L (3.5-5.1)
[2020-11-06 10:36] LABS: CALCIUM 8.8 mg/dL (8.5-10.1)
[2020-11-06 10:37] LABS: ALBUMIN 3.1 g/dl (3.4-5.0); BLOOD UREA NITROGEN 12.4 mg/dL (7-18); MAGNESIUM 2.3 mg/dL (1.8-2.4)
[2020-11-06 10:40] LABS: CREATININE 0.7 mg/dL (0.55-1.3); PHOSPHOROUS 2.9 mg/dL (2.5-4.9)
[2020-11-06 10:41] LABS: BILIRUBIN,TOTAL 0.5 mg/dL (0.2-1); TOT PROT 7.6 g/dl (6.4-8.2)
[2020-11-06] MEDS: levETIRAcetam 500 MG/5 ML ORAL SOLUTION (UNIT-DOSE CUPS) PO SCH (10:56)
[2020-11-06] MEDS: LACTOBACILLUS ACIDOPHILUS 1 TABLET PO SCH (10:59)
[2020-11-06] MEDS: amLODIPine BESYLATE 5 MG TABLET (FP) PO SCH (10:59)
[2020-11-06] MEDS: DOCUSATE SODIUM 100 MG CAPSULE (FP) PO SCH (10:59)
[2020-11-06] MEDS: ASPIRIN 81 MG CHEWABLE TABLETS PO SCH (10:59)
[2020-11-06] MEDS: METOPROLOL TARTRATE 25 MG TABLET (FP) PO SCH (10:59)
[2020-11-06] MEDS: FUROSEMIDE 20 MG TABLET (FP) PO SCH (11:00)
[2020-11-06] MEDS: FERROUS SO4 325 MG TABLET (FP) PO SCH (11:00)
[2020-11-06] MEDS: BACLOFEN 10 MG TABLET (FP) PO SCH (11:01)
[2020-11-06] MEDS: ASCORBIC ACID 500 MG/5 ML UNIT DOSE CUP PO SCH (11:02)
[2020-11-06] MEDS: LACOSAMIDE 50 MG TABLET PO SCH ×2 (11:07→22:31)
[2020-11-06] MEDS: VANCOMYCIN HCL 1,500 MG in DEXTROSE 5%-WATER - 500 ML IVPB SCH (12:03)
[2020-11-06] MEDS: MUPIROCIN CA 2% TOPICAL CREAM 15 GM TUBE TP SCH ×2 (12:24→22:36)
[2020-11-06] MEDS ORDERED: MIDAZOLAM HCL 2 MG/2 ML SINGLE DOSE VIAL IVPUSH ONE (16:00)
[2020-11-06] MEDS: RIVAROXABAN 20 MG TABLET PO SCH (17:05)
[2020-11-06] MEDS: POLYETHYLENE GLYCOL 3350 119 GM BTL PO SCH (22:32)
[2020-11-07] MEDS: CITRIC ACID/SODIUM CITRATE 30 ML UNIT-DOSE CUP PO SCH ×3 (00:03→21:35)
[2020-11-07] MEDS: DOCUSATE SODIUM 100 MG CAPSULE (FP) PO SCH ×3 (00:04→21:35)
[2020-11-07] MEDS: levETIRAcetam 500 MG/5 ML ORAL SOLUTION (UNIT-DOSE CUPS) PO SCH ×3 (00:04→21:33)
[2020-11-07] MEDS: BACLOFEN 10 MG TABLET (FP) PO SCH ×3 (00:05→21:36)
[2020-11-07] MEDS: SENNOSIDES 8.6MG TABLET (FP) PO SCH ×2 (00:05→21:34)
[2020-11-07] MEDS: ATORVASTATIN CA 20 MG TABLET (FP) PO SCH ×2 (00:05→21:36)
[2020-11-07] MEDS: METOPROLOL TARTRATE 25 MG TABLET (FP) PO SCH ×3 (00:05→21:34)
[2020-11-07] MEDS: AMANTADINE HCL 100MG/10 ML UNIT DOSE CUPS PO SCH ×4 (00:06→21:37)
[2020-11-07] MEDS: INSULIN SLIDING SCALE (NOVOLOG) 1 VIAL SQ SCH ×5 (00:19→22:42)
[2020-11-07] MEDS: VANCOMYCIN HCL 1,500 MG in DEXTROSE 5%-WATER - 500 ML IVPB SCH ×2 (00:21→12:22)
[2020-11-07] MEDS ORDERED: PT OWN MED DRAWER 7, Y5N ONE ×5 (06:06→13:55)
[2020-11-07 09:15] LABS: BASO % 0.6 % (0-2.0); EOS % 3.9 % (0-4.5); HEMOGLOBIN 10.3 GM/dL (11.7-16.9); LYMPH % 24.5 % (8-40); MCH 20.6 pg (25.7-33.7); MCHC 30.3 g/dl (32.0-35.9); MEAN CELL VOLUME 67.9 fl (80-96); MEAN PLT VOLUME 9.9 fl (7.5-11.1); MONO % 9.7 % (3.8-10.2); NEUT % 61.3 % (42.8-82.8); PLATELET COUNT 242 K/MM3 (134-434); RBC 5.01 M/mm3 (4.00-5.60); RDW 21.5 % (11.9-15.9)
[2020-11-07] MEDS: ASPIRIN 81 MG CHEWABLE TABLETS PO SCH (09:38)
[2020-11-07] MEDS: FERROUS SO4 325 MG TABLET (FP) PO SCH (09:39)
[2020-11-07] MEDS: LACTOBACILLUS ACIDOPHILUS 1 TABLET PO SCH (09:39)
[2020-11-07] MEDS: ASCORBIC ACID 500 MG/5 ML UNIT DOSE CUP PO SCH (09:39)
[2020-11-07] MEDS: FUROSEMIDE 20 MG TABLET (FP) PO SCH (09:39)
[2020-11-07] MEDS: LACOSAMIDE 50 MG TABLET PO SCH ×2 (09:39→20:08)
[2020-11-07] MEDS: amLODIPine BESYLATE 5 MG TABLET (FP) PO SCH (09:39)
[2020-11-07 10:11] LABS: ALBUMIN 3.3 g/dl (3.4-5.0); BLOOD UREA NITROGEN 13.3 mg/dL (7-18); CALCIUM 8.7 mg/dL (8.5-10.1); MAGNESIUM 2.4 mg/dL (1.8-2.4)
[2020-11-07 10:14] LABS: CREATININE 0.7 mg/dL (0.55-1.3); PHOSPHOROUS 2.9 mg/dL (2.5-4.9)
[2020-11-07 10:16] LABS: BILIRUBIN,TOTAL 0.6 mg/dL (0.2-1)
[2020-11-07] MEDS ORDERED: ENOXAPARIN NA (PORCINE) 80 MG/0.8 ML DISP.SYRIN SQ SCH (11:00)
[2020-11-07] MEDS ORDERED: VANCOMYCIN PREMIX 1.5 GM 1,500 MG/300 ML BAG IVPB SCH (11:00)
[2020-11-07] MEDS ORDERED: TAMSULOSIN HCL 0.4 MG CAP PO SCH (16:12)
[2020-11-07] MEDS: MUPIROCIN CA 2% TOPICAL CREAM 15 GM TUBE TP SCH ×2 (16:17→21:35)
[2020-11-07] MEDS ORDERED: RIVAROXABAN 20 MG TABLET PO SCH (18:00)
[2020-11-07] MEDS: POLYETHYLENE GLYCOL 3350 119 GM BTL PO SCH (20:10)
[2020-11-07 21:41] VITALS: BP 109/79; PULSE 89; TEMP 99.2
== END 2020-11-07 23:20 | DRG 312 ==
LOC: JER 17:24 → JERBED 19:32 → J8W 10-25 10:22
PROVIDERS: ADMIT Internal Medicine; ATTEND Internal Medicine
PROC: 0JXP0ZC Transfer Left Lower Leg Subcutaneous Tissue and Fascia with Skin, Subcutaneous Tissue and Fascia, Open Approach (ICD-10-PCS; 2020-11-04)
PROC: 3E10X8Z Irrigation of Skin and Mucous Membranes using Irrigating Substance (ICD-10-PCS; 2020-11-04)
PROC: 0JBP0ZZ Excision of Left Lower Leg Subcutaneous Tissue and Fascia, Open Approach (ICD-10-PCS; principal; 2020-11-04 13:30)
DX: E11.69 Type 2 diabetes mellitus with other specified complication (principal); E11.622 Type 2 diabetes mellitus with other skin ulcer; L97.928 Non-pressure chronic ulcer of unspecified part of left lower leg with other specified severity; D50.9 Iron deficiency anemia, unspecified; G40.802 Other epilepsy, not intractable, without status epilepticus; I10 Essential (primary) hypertension; E78.5 Hyperlipidemia, unspecified; N31.9 Neuromuscular dysfunction of bladder, unspecified; R33.9 Retention of urine, unspecified; M86.8X6 Other osteomyelitis, lower leg; R53.2 Functional quadriplegia; K59.09 Other constipation; B95.61 Methicillin susceptible Staphylococcus aureus infection as the cause of diseases classified elsewhere; Z86.73 Personal history of transient ischemic attack (TIA), and cerebral infarction without residual deficits; Z86.718 Personal history of other venous thrombosis and embolism; Z98.2 Presence of cerebrospinal fluid drainage device
CPT/HCPCS: 36415; 71045-TC-FY; 73562-TC-LT-FY; 73590-TC-LT-FY; 78315-TC; 80048; 80053; 81003; 82962; 83036; 83605; 83735; 84100; 85025; 85027; 85610; 85651; 85730; 86140; 86850; 86900; 86901; 87040; 87070; 87086; 87186; 87205; 93005; 93010; 94760; 99285-25; A9503; C9803; G0480; J0475; U0003

== ENCOUNTER 2021-12-17 21:44 | Observation (INO) | payer OTHER ==
[2021-12-17 22:48] LABS: BASO % 0.4 % (0-2.0); EOS % 1.9 % (0-4.5); HEMATOCRIT 42.4 % (35.4-49); HEMOGLOBIN 13.4 GM/dL (11.7-16.9); MCH 25.4 pg (25.7-33.7); MCHC 31.7 g/dl (32.0-35.9); MEAN CELL VOLUME 80.3 fl (80-96); MEAN PLT VOLUME 9.3 fl (7.5-11.1); MONO % 11.1 % (3.8-10.2); NEUT % 60.6 % (42.8-82.8); PLATELET COUNT 209 10^3/uL (134-434); RBC 5.28 M/mm3 (4.00-5.60); RDW 16.7 % (11.9-15.9); WHITE BLOOD COUNT 10.1 K/mm3 (4.0-10.0)
[2021-12-17 23:08] LABS: CALCIUM 8.4 mg/dL (8.5-10.1)
[2021-12-17 23:09] LABS: ALBUMIN 2.9 g/dl (3.4-5.0); BLOOD UREA NITROGEN 8.6 mg/dL (7-18)
[2021-12-17 23:12] LABS: CREATININE 0.6 mg/dL (0.55-1.3)
[2021-12-17 23:13] LABS: BILIRUBIN,TOTAL 0.3 mg/dL (0.2-1)
[2021-12-17 23:14] LABS: TOT PROT 7.3 g/dl (6.4-8.2)
[2021-12-17] MEDS ORDERED: SODIUM CHLORIDE 0.9% 1000 ML INFUS.BAG IV ONE (23:16)
[2021-12-17 23:17] LABS: LACTIC ACID 2.7 mmol/L (0.4-2.0)
[2021-12-17 23:23] LABS: INR 1.82 (0.83-1.09); PROTHROMBIN TIME (PATIENT) 21.1 SEC (9.7-13.0)
[2021-12-18] MEDS ORDERED: ACETAMINOPHEN 500 MG TABLET (FP) PO PRN (00:36)
[2021-12-18] MEDS ORDERED: LEVETIRACETAM 1000 MG PO SCH (00:45)
[2021-12-18] MEDS: INSULIN SLIDING SCALE (NOVOLOG) 1 VIAL SQ SCH ×3 (06:24→17:09)
[2021-12-18 08:33] LABS: BASO % 0.5 % (0-2.0); EOS % 2.6 % (0-4.5); HEMATOCRIT 35.8 % (35.4-49); HEMOGLOBIN 11.6 GM/dL (11.7-16.9); LYMPH % 28.6 % (8-40); MCH 25.6 pg (25.7-33.7); MCHC 32.3 g/dl (32.0-35.9); MEAN CELL VOLUME 79.2 fl (80-96); MEAN PLT VOLUME 9.9 fl (7.5-11.1); MONO % 9.4 % (3.8-10.2); NEUT % 58.9 % (42.8-82.8); PLATELET COUNT 184 10^3/uL (134-434); RBC 4.52 M/mm3 (4.00-5.60); RDW 16.3 % (11.9-15.9); WHITE BLOOD COUNT 8.6 K/mm3 (4.0-10.0)
[2021-12-18] MEDS: AMANTADINE HCL 100MG/10 ML UNIT DOSE CUPS PO SCH ×3 (08:42→17:09)
[2021-12-18] MEDS: BACLOFEN 10 MG TABLET (FP) PO SCH ×3 (08:42→21:41)
[2021-12-18 08:51] LABS: CALCIUM 7.6 mg/dL (8.5-10.1)
[2021-12-18 08:52] LABS: BLOOD UREA NITROGEN 9.4 mg/dL (7-18)
[2021-12-18 08:55] LABS: CREATININE 0.6 mg/dL (0.55-1.3)
[2021-12-18] MEDS ORDERED: levETIRAcetam 250 MG TABLET PO ONE ×2 (09:54→21:15)
[2021-12-18] MEDS ORDERED: levETIRAcetam 500 MG TABLET (FP) PO ONE ×2 (09:54→21:15)
[2021-12-18] MEDS ORDERED: LACOSAMIDE 200 MG TABLET PO SCH (10:00)
[2021-12-18] MEDS ORDERED: PATIENT'S OWN MEDICATION (NON-FORMULARY) (Bismuth Tribromoph/Petrolatum [Xeroform Petrolat TP SCH (10:00)
[2021-12-18] MEDS ORDERED: LEVETIRACETAM PO SCH (10:00)
[2021-12-18] MEDS: ASCORBIC ACID 500 MG TABLET (FP) PO SCH (10:20)
[2021-12-18] MEDS: FERROUS SO4 325 MG TABLET (FP) PO SCH (10:20)
[2021-12-18] MEDS: levETIRAcetam 1,500 MG, levETIRAcetam 250 MG PO SCH ×2 (10:20→21:41)
[2021-12-18 10:57] LABS: HEMATOCRIT 34.8 % (35.4-49); HEMOGLOBIN 11.4 GM/dL (11.7-16.9); MCHC 32.7 g/dl (32.0-35.9); MEAN CELL VOLUME 79.4 fl (80-96); MEAN PLT VOLUME 9.4 fl (7.5-11.1); PLATELET COUNT 193 10^3/uL (134-434); RBC 4.38 M/mm3 (4.00-5.60); RDW 16.4 % (11.9-15.9); WHITE BLOOD COUNT 7.3 K/mm3 (4.0-10.0)
[2021-12-18] MEDS: LACOSAMIDE 50 MG TABLET PO SCH ×2 (11:04→21:41)
[2021-12-18 16:13] LABS: HEMATOCRIT 33.2 % (35.4-49); HEMOGLOBIN 10.4 GM/dL (11.7-16.9); MCH 25.2 pg (25.7-33.7); MCHC 31.2 g/dl (32.0-35.9); MEAN CELL VOLUME 80.6 fl (80-96); MEAN PLT VOLUME 10.6 fl (7.5-11.1); PLATELET COUNT 203 10^3/uL (134-434); RBC 4.12 M/mm3 (4.00-5.60); RDW 16.5 % (11.9-15.9); WHITE BLOOD COUNT 6.6 K/mm3 (4.0-10.0)
[2021-12-18] MEDS ORDERED: ATORVASTATIN CA 20 MG TABLET (FP) PO SCH (22:00)
[2021-12-19] MEDS: AMANTADINE HCL 100MG/10 ML UNIT DOSE CUPS PO SCH ×3 (01:58→16:21)
[2021-12-19] MEDS: INSULIN SLIDING SCALE (NOVOLOG) 1 VIAL SQ SCH ×3 (06:20→16:21)
[2021-12-19] MEDS ORDERED: levETIRAcetam 250 MG TABLET PO ONE ×2 (08:01→21:26)
[2021-12-19] MEDS ORDERED: levETIRAcetam 500 MG TABLET (FP) PO ONE ×2 (08:01→21:26)
[2021-12-19] MEDS ORDERED: MINERAL OIL ENEMA 133 ML ENEMA RC ONE (08:07)
[2021-12-19 08:19] LABS: HEMATOCRIT 31.3 % (35.4-49); HEMOGLOBIN 9.9 GM/dL (11.7-16.9); MCH 25.2 pg (25.7-33.7); MCHC 31.7 g/dl (32.0-35.9); MEAN CELL VOLUME 79.6 fl (80-96); MEAN PLT VOLUME 10.3 fl (7.5-11.1); PLATELET COUNT 205 10^3/uL (134-434); RBC 3.93 M/mm3 (4.00-5.60); RDW 16.3 % (11.9-15.9); WHITE BLOOD COUNT 6.2 K/mm3 (4.0-10.0)
[2021-12-19 08:41] LABS: CALCIUM 7.8 mg/dL (8.5-10.1)
[2021-12-19 08:42] LABS: BLOOD UREA NITROGEN 10.1 mg/dL (7-18)
[2021-12-19 08:44] LABS: CREATININE 0.5 mg/dL (0.55-1.3)
[2021-12-19] MEDS: FERROUS SO4 325 MG TABLET (FP) PO SCH (09:32)
[2021-12-19] MEDS: levETIRAcetam 1,500 MG, levETIRAcetam 250 MG PO SCH ×2 (09:32→21:51)
[2021-12-19] MEDS: ASCORBIC ACID 500 MG TABLET (FP) PO SCH (09:32)
[2021-12-19] MEDS: LACOSAMIDE 50 MG TABLET PO SCH ×2 (09:33→21:54)
[2021-12-19] MEDS: BACLOFEN 10 MG TABLET (FP) PO SCH ×2 (09:33→21:53)
[2021-12-19] MEDS: METOPROLOL TARTRATE 25 MG TABLET (FP) PO SCH ×2 (09:38→21:55)
[2021-12-19] MEDS: FUROSEMIDE 20 MG TABLET (FP) PO SCH (09:38)
[2021-12-19] MEDS: amLODIPine BESYLATE 10 MG TABLET (FP) PO SCH (09:39)
[2021-12-19] MEDS ORDERED: POTASSIUM CHLORIDE TABS 20 MEQ TABLET.ER (FP) PO ONE ×2 (14:00→15:16)
[2021-12-19 14:07] VITALS: BMI 28.6
[2021-12-19 15:03] LABS: HEMATOCRIT 32.4 % (35.4-49); HEMOGLOBIN 10.4 GM/dL (11.7-16.9); MCH 25.5 pg (25.7-33.7); MCHC 32.1 g/dl (32.0-35.9); MEAN CELL VOLUME 79.5 fl (80-96); MEAN PLT VOLUME 9.6 fl (7.5-11.1); PLATELET COUNT 236 10^3/uL (134-434); RBC 4.07 M/mm3 (4.00-5.60); RDW 16.1 % (11.9-15.9); WHITE BLOOD COUNT 8.3 K/mm3 (4.0-10.0)
[2021-12-19 15:27] LABS: EPI CELLS 23 /uL (0-25.1); HYALINE CASTS 3 /uL (0-3.1); URINE APPEARANCE CLEAR; URINE BACTERIA 8 /uL (0-1359); URINE BILIRUBIN NEGATIVE (NEGATIVE); URINE COLOR YELLOW; URINE GLUCOSE (UA) NEGATIVE (NEGATIVE); URINE KETONE 1+ (NEGATIVE); URINE LEUK ESTERASE 1+ (NEGATIVE); URINE NITRITE NEGATIVE (NEGATIVE); URINE PROTEIN TRACE (NEGATIVE); URINE RBC 24 /uL (0-23.9); URINE WBC 80 /uL (0-25.8)
[2021-12-19] MEDS: AMINO ACIDS/PROTEIN HYDROLYS 30 ML LIQUID.PKT PO SCH (17:06)
[2021-12-19] MEDS: POLYETHYLENE GLYCOL (HEALTHYLAX) 3350 17 GM PACKET PO SCH (21:52)
[2021-12-20] MEDS: AMANTADINE HCL 100MG/10 ML UNIT DOSE CUPS PO SCH ×2 (01:00→09:43)
[2021-12-20 04:55] VITALS: BP 98/63; PULSE 91; TEMP 98.6
[2021-12-20] MEDS: POLYETHYLENE GLYCOL (HEALTHYLAX) 3350 17 GM PACKET PO SCH (05:59)
[2021-12-20] MEDS: INSULIN SLIDING SCALE (NOVOLOG) 1 VIAL SQ SCH ×2 (06:05→12:04)
[2021-12-20] MEDS ORDERED: levETIRAcetam 250 MG TABLET PO ONE (09:33)
[2021-12-20] MEDS ORDERED: levETIRAcetam 500 MG TABLET (FP) PO ONE (09:33)
[2021-12-20] MEDS: BACLOFEN 10 MG TABLET (FP) PO SCH (09:41)
[2021-12-20] MEDS: AMINO ACIDS/PROTEIN HYDROLYS 30 ML LIQUID.PKT PO SCH (09:41)
[2021-12-20] MEDS: ASCORBIC ACID 500 MG TABLET (FP) PO SCH (09:42)
[2021-12-20] MEDS: levETIRAcetam 1,500 MG, levETIRAcetam 250 MG PO SCH (09:42)
[2021-12-20] MEDS: LACOSAMIDE 50 MG TABLET PO SCH (09:42)
[2021-12-20] MEDS: FERROUS SO4 325 MG TABLET (FP) PO SCH (09:42)
[2021-12-20] MEDS: FUROSEMIDE 20 MG TABLET (FP) PO SCH (09:43)
[2021-12-20] MEDS: amLODIPine BESYLATE 10 MG TABLET (FP) PO SCH (09:43)
[2021-12-20] MEDS: METOPROLOL TARTRATE 25 MG TABLET (FP) PO SCH (09:43)
[2021-12-20] MEDS ORDERED: MULTIVITAMINS THER W-MINERALS COMBO TABLET (FP) PO SCH (10:00)
[2021-12-20] MEDS ORDERED: ASCORBIC ACID 250 MG TABLET (FP) PO SCH (10:00)
== END 2021-12-20 14:00 | disposition home or self-care (01) ==
LOC: JER 21:44 → INTOOBSV 23:16 → J7W 23:16 → UNDOADMOB 23:16 → J7W 12-18 14:19
PROVIDERS: ADMIT Hospitalist; ATTEND Internal Medicine
PROC: 3E0337Z Introduction of Electrolytic and Water Balance Substance into Peripheral Vein, Percutaneous Approach (ICD-10-PCS; principal; 2021-12-18)
DX: K92.2 Gastrointestinal hemorrhage, unspecified (principal); I10 Essential (primary) hypertension; E78.5 Hyperlipidemia, unspecified; E11.9 Type 2 diabetes mellitus without complications; G82.50 Quadriplegia, unspecified; G40.909 Epilepsy, unspecified, not intractable, without status epilepticus; N20.0 Calculus of kidney
CPT/HCPCS: 36415; 71045-TC-FY; 74174-TC; 80048; 80053; 81003; 82728; 82962; 83540; 83550; 83605; 85025; 85027; 85610; 85730; 86850; 86900; 86901; 87077; 87081; 93005; 93010; 93970-TC; 97161-GP; 99285-25; C9803-CS; G0378; J0475; U0003; U0005